=== PATIENT | female | born 1985 | race Caucasian/White ===

== ENCOUNTER 2016-11-22 15:36 | Emergency (ER) | payer OTHER ==
[~2016-11-22] VITALS: Ht 144.8 cm; Wt 52.7 kg
[~2016-11-22 15:36] MED LIST: PROC25SU30 RC; RIZA10TA23 PO
[2016-11-22 15:40] VITALS: BP 108/77; PULSE 95; RESP 20; O2SAT 100
--- NOTE | 2016-11-22 16:09 | ED.REPORT ---
HPI-General Illness Date of Service Nov 22, 2016 ED Provider: Toby Gonzalez MD This is a 31-year-old female with no pertinent past medical history who presents to the emergency department for abdominal pain. She notes both suprapubic pain and epigastric pain. Patient said the suprapubic pain started November 18 associated with heavy bleeding and blood clots. The pain did not radiate. Patient was concerned as her last menstrual period was November 02 with 3-4 days of spotting. Patient does have an implantable Naxplanon device in her arm for the last 2 years. She said the suprapubic pain has decreased, but she now has significant epigastric pain starting today. She does mention this pain radiates to her back with a burning sensation felt in the back. She does note a history of H. pylori that was treated with antibiotics 2 years prior. The pain is worse in a lying position and moving quickly. She has tried ibuprofen, aspirin without relief. She has had nausea with vomiting. Denies hematemesis. Patient denies vaginal discharge, history of gonorrhea or chlamydia. She does note she had a new partner within the last month and mention she had testing for STDs last month which was negative. She did note dizziness starting today as well as weakness. She denies fevers, chills, chest pain, shortness of breath, diarrhea, dysuria or urinary changes. She has had 4 pregnancies with 3 live births and one . Nursing Notes Stated Complaint: STOMACHE PAIN,WEAK,NAUSEA,LIGHT BLEEDING Chief Complaint: Female Abdominal Pain Allergies: Coded Allergies: Penicillins (Verified Allergy, Severe, 11/22/16) codeine (Verified Allergy, Severe, 11/22/16) Scheduled PRN Prochlorperazine Maleate (Compazine Suppository) 25 Mg Supp.rect 25 MG RC Q8 PRN PRN For Nausea/Vomiting Rizatriptan ODT (Maxalt SCREW MACHINE ADJUSTER AUTOMATIC) 10 Mg Tablet 10 MG PO [id number] PRN PRN migraine General Time Seen by MD: 16:08 Chief Complaint Abdominal pain Past Medical History Past Medical History Anxiety Reports: Migraines Past Surgical History Reports: Smoking History Never Smoker Social History Alcohol Use: "Social" Drug Use: THC Other Social History: Good social support, Local resident Ambulatory Status Independent Review of Systems Full Review of Systems Constitutional: Reports: Weakness - generalized, Denies: Chills, Fever Respiratory: Denies: Shortness of breath Cardiovascular: Denies: Chest pain GI: Reports: Abdominal pain, Nausea, Vomiting, Denies: Bloody/tarry stool, Diarrhea Female: Reports: Pelvic pain, Denies: Urinary frequency, Urinary urgency, Urination decreased Musculoskeletal: Reports: Back pain Neurologic: Reports: Dizziness, Lightheaded Complete sys rev & neg: except as marked. Physical Exam Vital Signs Vital Signs Date Time Temp Pulse Resp B/P Pulse Ox O2 Delivery O2 Flow Rate FiO2 11/22/16 22:44 89 20 118/85 97 Room Air 11/22/16 18:17 77 16 136/90 97 Room Air 11/22/16 15:40 95 20 108/77 100 Room Air Initial VS: Reviewed General/Constitutional: Well-developed, Well-nourished Head / Eyes: Atraumatic, Normocephalic ENT: Mucous membranes moist, Conjunctiva normal, No scleral icterus Respiratory: Breath sounds normal, Clear to auscultation, No respiratory distress Cardiovascular: Regular rate & rhythm, Heart sounds normal, Intact distal pulses Abdomen / GI: Soft, No guarding, No rebound, No distention Extremities: Vascular intact, Neuro intact Skin: Warm, Dry Neurologic: Alert, Oriented, Nonfocal Psychiatric: Mood/affect normal, Behavior normal, Normal thought content Abdomen: McBurney's non-tender Tenderness/Guarding/Rebound: Positive: McBurney's point tender, Tender LLQ... ( Mild), Tender LUQ... (Moderate), Tender RLQ... (Severe), Tender epigastric, Tender suprapubic (mild) Organomegaly / Mass / Hernia: Negative: Hepatomegaly, Splenomegaly Female Genitourinary: Tile And Marble Installer present, External genitalia NL, No cervical motion tend, No adnexal tenderness Vaginal Bleeding / Discharge: Positive: Discharge bloody Interpretation & Diagnostics Lab Results Interpretation Result Diagram: 11/22/16 1745 11/22/16 1745 Test 11/22/16 17:45 11/22/16 17:51 11/22/16 19:00 11/22/16 22:17 White Blood Count 4.9th/mm3 (3.8-10.1) Red Blood Count 4.27mil/mm3 (3.90-5.20) Hemoglobin 13.0g/dL (12.0-15.6) Hematocrit 38.1% (35.0-46.0) Mean Corpuscular Volume 89.2fL (81-100) Mean Corpuscular Hemoglobin 30.4pg (27.0-35.0) Mean Corpuscular Hemoglobin Concent 34.1% (32.0-37.0) Red Cell Distribution Width 13.2% (12.3-15.4) Platelet Count 204bil/L (150-400) Neutrophils (%) (Auto) 75.3% (40-74) Lymphocytes (%) (Auto) 17.8% (14-46) Monocytes (%) (Auto) 5.7% (4-12) Eosinophils (%) (Auto) 0.8% (0-5) Basophils (%) (Auto) 0.2% (0-3) Sodium Level 141mEq/L (134-144) Potassium Level 3.4mEq/L (3.5-5.2) Chloride Level 105mEq/L (97-108) Carbon Dioxide Level 21mmol/L (18-29) Blood Urea Nitrogen 10mg/dL (6-20) Creatinine 0.54mg/dL (0.57-1.00) Estimat Glomerular Filtration Rate 191mL/min (>59) Glucose Level 84mg/dL (60-99) Calcium Level 8.3mg/dL (8.5-10.1) Magnesium Level 2.0mg/dL (1.6-2.6) Total Bilirubin 0.2mg/dL (0.0-1.2) Aspartate Amino Transf (AST/SGOT) 21U/L (0-50) Alanine Aminotransferase (ALT/SGPT) 17U/L (0-32) Alkaline Phosphatase 68U/L (25-150) Total Protein 6.7g/dL (6.4-8.4) Albumin 3.9g/dL (3.4-5.0) Lipase 15U/L (13-60) Urine Color Yellow (YELLOW) Urine Appearance Clear (CLEAR,HAZY) Urine pH 6.0 (5.0-8.0) Urine Specific [place] 1.025 (1.003-1.035) Urine Protein Negativemg/dL (NEG,TRACE) Urine Glucose (UA) Negativemg/dL (NEGATIVE) Urine Ketones 40mg/dL (NEGATIVE) Urine Occult Blood Moderate (NEGATIVE) Urine Nitrite Negative (NEGATIVE) Urine Bilirubin Negative (NEGATIVE) Urine Urobilinogen Normalmg/dL (NORMAL) Urine Leukocyte Esterase Negative (NEGATIVE) Urine RBC 0-2/hpf (0-2) Urine WBC 0-5/hpf (0-5) Urine Epithelial Cells Moderate/hpf (NONE-MOD) Urine Crystals None seen (NONE SEEN) Urine Bacteria Few/hpf (NONE-FEW) Urine Hyaline Casts None/lpf (NONE) Urine Granular Casts None seen (NONE SEEN) Urine Waxy Casts None seen (NONE SEEN) Urine Red Blood Cell Casts None seen (NONE SEEN) Urine White Blood Cell Casts None seen (NONE SEEN) Urine Mucus Present (None Seen) Urine Trichomonas None seen (NONE SEEN) Urine Yeast None (NONE SEEN) Urinalysis Comment None Lactic Acid Level 0.5mmol/L (0.4-2.0) CT Abd / Pelvis Interpretation IMPRESSION: 1. Minimal appearance of pyloric thickening, overall nonspecific. This may be related to mild amount of inflammation versus peristalsis. Otherwise, unremarkable exam. Dictated by: Adalgisa Verdin M.D. on 11/22/2016 at 18:54 Approved by: Adalgisa Verdin M.D. on 11/22/2016 at 18:58 ADDENDUM: As noted above, a 29 mm right ovarian cyst is present. Dictated by: Adalgisa Verdin M.D. on 11/22/2016 at 19:01 Study type: Abdominal CT IV contrast Interpretation / Wet Read by: Interpret - Radiologist Re-Eval/Medical Decision Med Decision/Clinical Course In summary, this is a 31-year-old female with no pertinent past medical history who presents to the ED for evaluation of abdominal pain associated with nausea and vomiting over the past 5 days. DDx broad and includes ectopic , ovarian torsion, ruptured ovarian cyst, PID, SBO, appendicitis, cholecystitis/ biliary colic, pancreatitis, nephrolithiasis/renal colic, IBD, intraabdominal mass/abscess, gastroenteritis, diverticulitis, mesenteric ischemia, hernia. Upon arrival to the ED, patient hemodynamically stable, vitals grossly within normal limits. Pt given IVF, zofran, and dilaudid to help control pain and nausea. Initial workup and labs as per above, notable for normal CBC and CMP, and UA with moderate occult blood though patient has been having vaginal bleeding. Lipase is normal. Urine test negative. Did not appreciate any CMT or adnexal fullness on exam. US of the patient's abdomen demonstrates 2.9 cm simple cyst with good flow to the ovaries. CT abd/pelvis demonstrates right ovarian cyst measuring 2.9 cm as well as pyloric thickening. There is no acute finding of the patient's upper abdominal pain based off of CT scan. She does have a history of H. pylori and question would be of peptic ulcer disease. There does not seem to be any urgent process at this time. Recommend outpatient follow-up with PCP with consideration to GI for nonspecific finding of pyloric thickening. As for her suprapubic pain, this could be a result of her 29 mm ovarian cyst. There does not seem to be any evidence of rupture, ectopic , PID, SBO, appendicitis, cholecystitis, pancreatitis based off of imaging and blood work. Recommend follow-up with OB/ CLAIM REP. Given above, seems reasonable to discharge the patient home with close PCP f/u , very careful return precautions, and repeat examination within 24-48 hours. Patient verbalized understanding and agreement with the plan as stated, denied further questions. Time of Eval: 20:00 Patient Status: Condition improved Re-Evaluation/Progress Note: Patient given zofran and dilaudid with improvement in symptoms. Counseled Regarding: Diagnosis, Lab results, Need for follow-up, When/why to return to ED Discharge & Departure Primary Impression: Abdominal pain Abdominal location: epigastric Qualified Code: R10.13 - Epigastric pain Additional Impressions: Right ovarian cyst Pelvic pain Disposition: Home Discharge Condition All VS Reviewed: Yes Condition: Stable Patient Instructions: Epigastric Pain (ED), Ovarian Cyst (DC) Additional Instructions: In the emergency department, you were evaluated for your pain with blood work and imaging (pelvic ultrasound and CT scan). The blood work did not show any signs of infection at this time. On CT scan, there is a 29 mm right ovarian cyst that was seen. For this we recommend follow-up with an DRUM FILLER within the next week. On CT scan there was also some thickening of your pylorus (the end part of the stomach) seen. You should follow up with your primary care physician about this. If you start to develop sudden severe abdominal pain that will not go away, fevers and chills associated with your abdominal pain or vomit blood or see blood in your stool, return to the emergency department. Referrals: Katherine Greene PA-C (PCP) EDSupervising Provider for APC: Toby Gonzalez MD Attending Statement I saw and evaluated the patient in conjunction with the resident. I performed my own physical examination and history. I agree with the plan and findings as documented above. copies to: Katherine Greene PA-C, William B MD Nov 22, 2016 16:09 Román Berger DO Nov 22, 2016 17:15
[2016-11-22] MEDS ORDERED: 0.9% Sodium Chloride 1,000 ML IV ONE (17:38)
[2016-11-22] MEDS ORDERED: Ondansetron 2 mg/mL 2 mL Inj IVPUSH PRN (17:40)
[2016-11-22] MEDS: HYDROmorphone 0.5 mg/0.5 mL iSecure Syringe IVPUSH PRN ×4 (17:57→22:35)
[2016-11-22 17:58] LABS: BASOPHILS % (AUTO) 0.2 % (0-3); EOSINOPHILS % (AUTO) 0.8 % (0-5); MONOCYTES % (AUTO) 5.7 % (4-12); Mean Corpuscular Hemoglobin 30.4 pg (27.0-35.0); Mean Corpuscular Volume 89.2 fL (81-100); NEUTROPHILS % (AUTO) 75.3 % (40-74); Platelet Count 204 bil/L (150-400)
[2016-11-22 18:15] LABS: APPEARANCE,URINE CLEAR (CLEAR,HAZY); COLOR,URINE YELLOW (YELLOW); OCCULT BLOOD,URINE MODERATE (NEGATIVE)
[2016-11-22 18:16] LABS: UROBILINOGEN,URINE NORMAL (NORMAL)
[2016-11-22 18:17] VITALS: BP 136/90; PULSE 77; RESP 16; O2SAT 97
--- NOTE | 2016-11-22 18:59 | DRSVH ---
PROCEDURE: CT ABDOMEN AND PELVIS WITH CONTRAST ([id number]) INDICATIONS: abdominal pain TECHNIQUE: After the administration of intravenous contrast, 5 mm thick sections acquired from the diaphragm to the symphysis. 5 mm coronal and sagittal reformats were acquired. For radiation dose reduction, the following was used: automated exposure control, adjustment of mA and/or kV according to patient siz e. COMPARISON: None. FINDINGS: Image quality: Excellent. ABDOMEN: Lung bases: Lung bases are clear. Heart size is normal. Solid organs: Liver and spleen are normal in size and enhancement. Gallbladder is unremarkable. Bi liary system is non dilated. Pancreas enhances normally. No adrenal nodules. Kidneys demonstrate n ormal size and enhancement, without hydronephrosis. Peritoneum and bowel: Bowel loops demonstrate normal wall thickness and caliber. No free fluid or a ir. Appendix is not clearly identified. No right lower quadrant inflammatory change. There is a mini mal appearance of thickening within the pylorus. Nodes and vessels: No retroperitoneal or mesenteric adenopathy by size criteria. Aorta and inferior vena cava are normal in size. Miscellaneous: No ventral hernias. PELVIS: Genitourinary: Bladder wall thickness is normal. 29 mm right ovarian cyst. Miscellaneous: No inguinal hernias or adenopathy. Bones: No suspicious bony lesions. No vertebral body compression fractures. IMPRESSION: 1. Minimal appearance of pyloric thickening, overall nonspecific. This may be related to mild amount of inflammation versus peristalsis. Otherwise, unremarkable exam. Dictated by: Adalgisa Verdin M.D. on 11/22/2016 at 18:54 Approved by: Adalgisa Verdin M.D. on 11/22/2016 at 18:58
[2016-11-22 22:44] VITALS: BP 118/85; PULSE 89; RESP 20; O2SAT 97
--- NOTE | 2016-11-23 11:52 | DRSVH ---
PROCEDURE: US PELVIC SONOGRAM WITH TRANSVAG AND DOPPLER INDICATIONS: evaluate right ovarian cyst, rule out TOA, torsion TECHNIQUE: Real-time scanning was performed of the pelvic organs, with image documentation. Additional endovagi nal scanning was necessary due to incomplete visualization of the adnexal and endometrial structures by transabdominal scanning. COMPARISON: [facility], CT, CT ABD PELVIS W CON, 11/22/2016, 18:43. FINDINGS: Transabdominal scanning: Limited scanning through the kidneys shows no hydronephrosis. No pathologi c free abdominal or pelvic fluid. Endovaginal scanning: Uterus: Uterus is normal in size at 7.6 x 3.1 x 4.6 cm. The endometrium measures 8 mm in combined t hickness. Ovaries: The right ovary measures 4.1 x 3.1 x 3.0 cm and the left ovary measures 3.4 x 1 point for by 1.8 cm. There is a thin-walled simple cyst in the right ovary measuring up to 2.9 cm. There is pat ent arterial venous flow demonstrated within the ovaries bilaterally. IMPRESSION: 1. Simple cyst demonstrated in the right ovary likely representing a follicular cyst. 2. No evidence of ovarian torsion or tubo-ovarian abscess as clinically queried. Dictated by: Jovan Cali M.D. on 11/23/2016 at 11:48 Approved by: Jovan Cali M.D. on 11/23/2016 at 11:51
== END 2016-11-22 22:45 | disposition home or self-care (01) ==
LOC: SED 15:36
DX: R10.13 Epigastric pain (principal); N83.201 Unspecified ovarian cyst, right side; R10.2 Pelvic and perineal pain; F41.9 Anxiety disorder, unspecified; G43.909 Migraine, unspecified, not intractable, without status migrainosus; Z88.0 Allergy status to penicillin; Z88.5 Allergy status to narcotic agent
CPT/HCPCS: 36415; 74177; 76830; 76856; 80053; 81001; 81002; 81025; 83605; 83690; 83735; 85025; 87210; 87491; 87591; 93975; 96361; 96374; 96375; 96376; 99285; G0463; J1170; J2405; J7030; Q9967

== ENCOUNTER 2016-12-19 02:32 | Emergency (ER) | payer OTHER ==
[~2016-12-19] VITALS: Ht 144.8 cm; Wt 50.9 kg
[2016-12-19 02:36] VITALS: BP 117/74; PULSE 97; RESP 18; O2SAT 100
--- NOTE | 2016-12-19 02:43 | ED.REPORT ---
HPI-Abd Pain F Under 40 Date of Service Dec 19, 2016 ED Provider: Ace Crowe MD The patient is a 31 year old female with a history of anxiety, migraines, and c- section presenting to the ED complaining of right abdominal pain onset last night. She claims that the pain went away yesterday and then came back tonight and made it so she could not sleep. The abdominal pain is exacerbated by walking. Denied symptoms include nausea, vomiting, fever, dysuria, hematuria, constipation, and bloody or black stool. She was seen here 11/22/2016 for similar symptoms. Nursing Notes Stated Complaint: ABDOMINAL PAIN Chief Complaint: Female Abdominal Pain Nursing Notes Reviewed: Yes Allergies: Coded Allergies: Penicillins (Verified Allergy, Severe, 12/19/16) codeine (Verified Allergy, Severe, 12/19/16) Scheduled PRN Prochlorperazine Maleate (Compazine Suppository) 25 Mg Supp.rect 25 MG RC Q8 PRN PRN For Nausea/Vomiting Rizatriptan ODT (Maxalt MANAGER GAMING) 10 Mg Tablet 10 MG PO [id number] PRN PRN migraine General Time Seen by MD: 02:43 Chief Complaint Abdominal pain (right abdominal) Hx Obtained From: Patient Arrived By: Walk-in Sudden in Onset?: Yes Onset Occurred: 1 day ago Symptom Duration: Since onset Location: : RUQ Quality: Painful Exacerbated by: Walking Recent Healthcare: No recent hospitalization, Recent doctor visit Similar Sx Previous: Yes Past Medical History Past Medical History Anxiety Reports: Migraines Past Surgical History Reports: Smoking History Never Smoker Social History Alcohol Use: "Social" Drug Use: THC Other Social History: Good social support, Local resident Ambulatory Status Independent Review of Systems Difficulty sleeping Constitutional: Denies: Fever GI: Reports: Abdominal pain (RUQ), Denies: Bloody/tarry stool, Constipation, Diarrhea, Nausea, Vomiting Female: Denies: Dysuria, Hematuria Complete sys rev & neg: except as marked. Physical Exam Initial Vital Signs Vital Signs (First) Date Time Temp Pulse Resp B/P Pulse Ox O2 Delivery O2 Flow Rate FiO2 12/19/16 02:36 36.6 97 18 117/74 100 Room Air Initial VS: Reviewed, Vital signs normal Head / Eyes: Atraumatic, Normocephalic ENT: Mucous membranes moist Neck: Supple, Non-tender, Full range of motion Lymphatic: No lymphadenopathy Extremities: Vascular intact, Neuro intact, No swelling, No tenderness Skin: Warm, Dry Neurologic: Alert, Oriented Psychiatric: Mood/affect normal, Behavior normal General/Constitutional: Awake, Alert, No acute distress Anicteric Respiratory / Chest: Atraumatic, Breath sounds NL, Breath sounds = bilat, No respiratory distress Cardiovascular: Heart rate NL, Regular rhythm, Heart sounds NL Abdomen: Atraumatic, Soft, BS normoactive Tenderness/Guarding/Rebound: Positive: Tender RUQ... (Moderate) Back: Atraumatic, Inspection NL, Non-tender Interpretation & Diagnostics Lab Results Interpretation Result Diagram: 12/19/16 0318 12/19/16 0318 Test 12/19/16 03:18 White Blood Count 7.1th/mm3 (3.8-10.1) Red Blood Count 4.43mil/mm3 (3.90-5.20) Hemoglobin 13.2g/dL (12.0-15.6) Hematocrit 39.2% (35.0-46.0) Mean Corpuscular Volume 88.5fL (81-100) Mean Corpuscular Hemoglobin 29.8pg (27.0-35.0) Mean Corpuscular Hemoglobin Concent 33.7% (32.0-37.0) Red Cell Distribution Width 13.3% (12.3-15.4) Platelet Count 247bil/L (150-400) Neutrophils (%) (Auto) 61.6% (40-74) Lymphocytes (%) (Auto) 27.5% (14-46) Monocytes (%) (Auto) 7.3% (4-12) Eosinophils (%) (Auto) 3.1% (0-5) Basophils (%) (Auto) 0.4% (0-3) Urine Color Yellow (YELLOW) Urine Appearance Clear (CLEAR,HAZY) Urine pH 6.0 (5.0-8.0) Urine Specific [place] 1.025 (1.003-1.035) Urine Protein Negativemg/dL (NEG,TRACE) Urine Glucose (UA) Negativemg/dL (NEGATIVE) Urine Ketones Tracemg/dL (NEGATIVE) Urine Occult Blood Negative (NEGATIVE) Urine Nitrite Negative (NEGATIVE) Urine Bilirubin Negative (NEGATIVE) Urine Urobilinogen Normalmg/dL (NORMAL) Urine Leukocyte Esterase Negative (NEGATIVE) Urine RBC 0-2/hpf (0-2) Urine WBC 0-5/hpf (0-5) Urine Epithelial Cells Occasional/hpf (NONE-MOD) Urine Crystals None seen (NONE SEEN) Urine Bacteria None/hpf (NONE-FEW) Urine Hyaline Casts Occasional/lpf (NONE) Urine Granular Casts None seen (NONE SEEN) Urine Waxy Casts None seen (NONE SEEN) Urine Red Blood Cell Casts None seen (NONE SEEN) Urine White Blood Cell Casts None seen (NONE SEEN) Urine Mucus None seen (None Seen) Urine Trichomonas None seen (NONE SEEN) Urine Yeast None (NONE SEEN) Urinalysis Comment None Urine Culture Reflexed Not indicated Sodium Level 141mEq/L (134-144) Potassium Level 3.6mEq/L (3.5-5.2) Chloride Level 101mEq/L (97-108) Carbon Dioxide Level 26mmol/L (18-29) Blood Urea Nitrogen 9mg/dL (6-20) Creatinine 0.92mg/dL (0.57-1.00) Estimat Glomerular Filtration Rate 103mL/min (>59) Glucose Level 85mg/dL (60-99) Calcium Level 9.1mg/dL (8.5-10.1) Magnesium Level 2.1mg/dL (1.6-2.6) Total Bilirubin 0.2mg/dL (0.0-1.2) Aspartate Amino Transf (AST/SGOT) 48U/L (0-50) Alanine Aminotransferase (ALT/SGPT) 36U/L (0-32) Alkaline Phosphatase 77U/L (25-150) Total Protein 7.5g/dL (6.4-8.4) Albumin 4.5g/dL (3.4-5.0) Lipase 30U/L (13-60) Re-Eval/Medical Decision Med Decision/Clinical Course Med Decision/Clinical Course: 31-year-old presents with right upper quadrant abdominal pain. She had recently been seen with more left-sided pain and possible gastritis. Endoscopy is currently being scheduled. Her pain today is quite specifically right upper quadrant appears to be biliary colic. Review of her CAT scan shows no calcified stones. No value in repeating her CAT scan this morning. Referred for ultrasound as a fasting scheduled study in the next 2-3 days. Home with a small supply of Vicodin, twice a day proton pump inhibitor. Discharged in stable condition. Re-Evaluation/Progress : Time of Eval: 04:37 Re-Evaluation/Progress Note: Patient rechecked. Discussed lab results and plan to discharge. The patient understands and agrees with the plan. Counseled Regarding: Diagnosis, Lab results, Need for follow-up, When/why to return to ED Discharge & Departure Primary Impression: Biliary colic Disposition: Home Discharge Condition All VS Reviewed: Yes Condition: Improved Patient Instructions: Biliary Colic (ED), Low Fat Diet (ED) Additional Instructions: Eat a very low fat diet. Continue omeprazole twice daily. Call radiology today for Thursday or Thursday appointment for ultrasound. Call your doctor to sign off on the ultrasound to ensure insurance coverage. For the ultrasound, have nothing to the drink or smoke for midnight until the test in the morning. Return if any immediate issues. Sparing use of Vicodin if needed for pain. Referrals: Katherine Greene PA-C (PCP) Scribe Attestation Portions of this note were transcribed by Mahendra Neri. I, Dr. Crowe personally performed the history, physical exam and medical decision-making; I reviewed and confirmed the accuracy of the information in the transcribed note. Signed by: Stefanie Rogers, 12/19/2016 copies to: Katherine Greene PA-C, Christopher W MD Dec 19, 2016 02:43 Dec 19, 2016 03:00
[2016-12-19] MEDS ORDERED: 0.9% Sodium Chloride 1,000 ML IV ONE (02:56)
[2016-12-19] MEDS ORDERED: Ondansetron 2 mg/mL 2 mL Inj IVPUSH ONE (03:00)
[2016-12-19] MEDS ORDERED: Famotidine Inj 20 MG in IV Premix 1 EACH IV ONE (03:00)
[2016-12-19 03:24] LABS: BASOPHILS % (AUTO) 0.4 % (0-3); EOSINOPHILS % (AUTO) 3.1 % (0-5); MONOCYTES % (AUTO) 7.3 % (4-12); Mean Corpuscular Hemoglobin 29.8 pg (27.0-35.0); Mean Corpuscular Volume 88.5 fL (81-100); NEUTROPHILS % (AUTO) 61.6 % (40-74); Platelet Count 247 bil/L (150-400)
[2016-12-19 03:26] LABS: APPEARANCE,URINE CLEAR (CLEAR,HAZY); COLOR,URINE YELLOW (YELLOW); OCCULT BLOOD,URINE NEGATIVE (NEGATIVE); UROBILINOGEN,URINE NORMAL (NORMAL)
[2016-12-19 03:58] LABS: Magnesium 2.1 mg/dL (1.6-2.6)
[2016-12-19] MEDS ORDERED: _HYDROcodone/APAP 5-325 mg Tablet PO PRN (04:40)
[2016-12-19 05:28] VITALS: BP 103/40; PULSE 66; RESP 18; O2SAT 98
== END 2016-12-19 05:30 | disposition home or self-care (01) ==
LOC: SED 02:32
DX: K80.20 Calculus of gallbladder without cholecystitis without obstruction (principal); Z88.0 Allergy status to penicillin; Z88.5 Allergy status to narcotic agent
CPT/HCPCS: 36415; 80053; 81000; 81025; 83690; 83735; 85025; 96361; 96374; 96375; 99285; J1885; J2405; J3490; J7030

== ENCOUNTER → 2016-12-20 | Emergency (ER) | payer OTHER ==
[~2016-12-20] VITALS: Ht 144.8 cm; Wt 50.9 kg
[~2016-12-20] MED LIST changes: +0.9% Sodium Chloride 1,000 ML IV ONE; +Famotidine 10 mg/mL 2 mL Inj IVPUSH ONE; +Ondansetron 2 mg/mL 2 mL Inj IVPUSH PRN; +Sucralfate 100 mg/mL 10 mL Suspension PO ONE; +_HYDROcodone/APAP 5-325 mg Tablet PO PRN
[2016-12-20 20:33] VITALS: BP 105/60; PULSE 94; RESP 22; O2SAT 100
[2016-12-20] MEDS: HYDROmorphone 0.5 mg/0.5 mL iSecure Syringe IVPUSH PRN ×2 (22:08→23:20)
[2016-12-20 22:10] LABS: BASOPHILS % (AUTO) 0.9 % (0-3); EOSINOPHILS % (AUTO) 4.3 % (0-5); Mean Corpuscular Hemoglobin 29.9 pg (27.0-35.0); Mean Corpuscular Volume 90.7 fL (81-100); NEUTROPHILS % (AUTO) 42.8 % (40-74); Platelet Count 209 bil/L (150-400)
--- NOTE | 2016-12-20 22:11 | ED.REPORT ---
HPI-Abd Pain F Under 42 Date of Service Dec 20, 2016 ED Provider: Nga Miles MD Pt is an otherwise healthy 31 year old female who presents to the ED complaining of constant sharp RUQ abdominal pain onset 2 days ago. She c/o associated pain radiating to her back, weakness, nausea, vomiting (1x), and chills. She denies fever, diarrhea, constipation, and any other symptoms. Pt rates her abdominal pain as a 8.5/10, stating that it is a 5/10 after receiving medication. Pt presented to the ED on 12/19/16 with RUQ abdominal and she was discharged with a diagnosis of bilary colic. Nursing Notes Stated Complaint: PAIN RIGHT UPPER STOMACH Chief Complaint: Female Abdominal Pain Nursing Notes Reviewed: Yes Allergies: Coded Allergies: Penicillins (Verified Allergy, Severe, 12/19/16) codeine (Verified Allergy, Severe, 12/19/16) Scheduled PRN Prochlorperazine Maleate (Compazine Suppository) 25 Mg Supp.rect 25 MG RC Q8 PRN PRN For Nausea/Vomiting Rizatriptan ODT (Maxalt DIABETES SPECIALIST) 10 Mg Tablet 10 MG PO [id number] PRN PRN migraine General Time Seen by MD: 21:47 Chief Complaint Abdominal pain Hx Obtained From: Patient Arrived By: Walk-in Sudden in Onset?: No Onset Occurred: 2 days ago Symptom Duration: Since onset Location: : RUQ Quality: Painful Severity: Current: Pain level 5 out of 10 Severity: Maximum: Pain level 8 out of 10 Recent Healthcare: Recent doctor visit Similar Sx Previous: Yes Past Medical History Past Medical History Anxiety Bilac colic Reports: Migraines Past Surgical History Reports: Smoking History Never Smoker Social History Alcohol Use: "Social" Drug Use: THC Other Social History: Good social support, Local resident Ambulatory Status Independent Review of Systems Constitutional: Reports: Chills, Weakness - generalized, Denies: Fever GI: Reports: Abdominal pain, Nausea, Vomiting, Denies: Constipation, Diarrhea Musculoskeletal: Reports: Back pain Complete sys rev & neg: except as marked. Physical Exam Initial Vital Signs Vital Signs (First) Date Time Temp Pulse Resp B/P Pulse Ox O2 Delivery O2 Flow Rate FiO2 12/20/16 20:33 36.7 94 22 105/60 100 Room Air Initial VS: Reviewed Head / Eyes: Atraumatic, Normocephalic Neck: Supple, Full range of motion Extremities: Vascular intact, Neuro intact Skin: Warm, Dry, No cyanosis Neurologic: Alert, Oriented, Nonfocal Psychiatric: Mood/affect normal, Behavior normal General/Constitutional: Awake, Alert Respiratory / Chest: Atraumatic, Breath sounds NL, Breath sounds = bilat Cardiovascular: Heart rate NL, Regular rhythm, Heart sounds NL Abdomen: Atraumatic, Soft Epigastric and RUQ tenderness with guarding. Back: Atraumatic, Full range of motion Interpretation & Diagnostics Lab Results Interpretation Result Diagram: 12/20/16220612/20/162206 Test 12/20/16 22:07 White Blood Count 4.6th/mm3 (3.8-10.1) Red Blood Count 3.98mil/mm3 (3.90-5.20) Hemoglobin 11.9g/dL (12.0-15.6) Hematocrit 36.1% (35.0-46.0) Mean Corpuscular Volume 90.7fL (81-100) Mean Corpuscular Hemoglobin 29.9pg (27.0-35.0) Mean Corpuscular Hemoglobin Concent 33.0% (32.0-37.0) Red Cell Distribution Width 12.9% (12.3-15.4) Platelet Count 209bil/L (150-400) Neutrophils (%) (Auto) 42.8% (40-74) Lymphocytes (%) (Auto) 43.8% (14-46) Monocytes (%) (Auto) 8.0% (4-12) Eosinophils (%) (Auto) 4.3% (0-5) Basophils (%) (Auto) 0.9% (0-3) Sodium Level 141mEq/L (134-144) Potassium Level 3.6mEq/L (3.5-5.2) Chloride Level 103mEq/L (97-108) Carbon Dioxide Level 26mmol/L (18-29) Blood Urea Nitrogen 11mg/dL (6-20) Creatinine 0.63mg/dL (0.57-1.00) Estimat Glomerular Filtration Rate 160mL/min (>59) Glucose Level 101mg/dL (60-99) Calcium Level 8.5mg/dL (8.5-10.1) Magnesium Level 2.3mg/dL (1.6-2.6) Total Bilirubin 0.2mg/dL (0.0-1.2) Aspartate Amino Transf (AST/SGOT) 32U/L (0-50) Alanine Aminotransferase (ALT/SGPT) 28U/L (0-32) Alkaline Phosphatase 65U/L (25-150) Total Protein 6.8g/dL (6.4-8.4) Albumin 4.1g/dL (3.4-5.0) Lipase 27U/L (13-60) Hold [place] Top Tube Received (Received) Re-Eval/Medical Decision Med Decision/Clinical Course The patient has significant epigastric or right upper quadrant pain but no signs of cholecystitis. Her symptoms could be related to the biliary sludge that she has or it could be related to her ongoing abdominal symptoms. The patient will be educated on eating nonfatty diet and was told she is to follow up for HIDA scan. Partial list of differential diagnoses considered were peptic ulcer disease, gastroenteritis, pancreatitis, cholecystitis, and bowel obstruction. An ultrasound was done and does not show any signs of cholecystitis although she does have sludge and ate 2 hours ago with a full gallbladder so this is likely the cause of her symptoms but she does not have acute cholecystitis and can be taken care of as an outpatient. Source of Hx: Old records Re-Evaluation/Progress #1: Time of Eval: 22:21 Re-Evaluation/Progress Note: Informed pt of plan for treatment, US, and potential causes for her pain. Pt understands and agrees with plan. All questions addressed. Re-Evaluation/Progress #2: Time of Eval: 23:38 Re-Evaluation/Progress Note: Pt rechecked. Informed pt of US results and plan for discharge. Pt understands and agrees with plan for discharge. F/U instructions and RTER warnings given. All questions addressed. Counseled Regarding: Diagnosis, Lab results, Need for follow-up, When/why to return to ED Discharge & Departure Primary Impression: Abdominal pain Abdominal location: unspecified location Qualified Code: R10.9 - Unspecified abdominal pain Discharge Condition All VS Reviewed: Yes Condition: Stable Patient Instructions: Acute Abdominal Pain (ED) Additional Instructions: Thank you for entrusting us with your care today. Your labs and US are reassuring. It is unclear what is causing your symptoms today, but they could be related to peptic ulcer disease. There were no signs of gallbladder obstruction. There is still a remote possibility that it could be your gallbladder. Drink plenty of fluids. Stay away from fatty foods. Call your primary care provider on Thursday for follow up appointment next week. Have a HIDA scan ordered for further evaluation. Return to the emergency department for any new or concerning symptoms such as worsening pain. Referrals: Katherine Greene PA-C (PCP) Scribe Attestation Portions of this note were transcribed by Ivelisse Sales. I, Dr. Miles personally performed the history, physical exam and medical decision-making; I reviewed and confirmed the accuracy of the information in the transcribed note. Signed by : Stefanie Cardoso, 12/20/16. copies to: Katherine Greene PA-C, Jena M MD Dec 20, 2016 22:11 Ivelisse Rodas Dec 20, 2016 22:14
[2016-12-20 22:37] LABS: Magnesium 2.3 mg/dL (1.6-2.6)
[2016-12-20 23:59] VITALS: BP 97/65; PULSE 70; RESP 16; O2SAT 99
[2016-12-21] VITALS: BP 97/65; PULSE 70; RESP 16; O2SAT 99
--- NOTE | 2016-12-21 10:13 | DRSVH ---
PROCEDURE: US ABDOMEN ([id number]) INDICATIONS: 31 year-old female with right upper quadrant abdominal pain. TECHNIQUE: Real-time scanning was performed of the abdominal and retroperitoneal organs, with image documentatio n. COMPARISON: [facility], CT, CT ABD PELVIS W CON, 11/22/2016, 18:43. FINDINGS: Preliminary interpretation rendered by [facility]. Liver: Liver is normal in size and homogeneous in echotexture. Gallbladder: No gallstones; there is moderate dependent echogenic gallbladder sludge. Gallbladder wa ll thickness is normal. No pericholecystic fluid. Biliary ducts: Intrahepatic bile ducts are non-dilated. Extrahepatic bile duct caliber measures 5.7 mm. Normal is 6-7 mm or less in diameter, or 10 mm or less post-cholecystectomy. Pancreas: Visualized portions of the pancreas are sonographically normal. Spleen: Spleen is normal in size and homogeneous in echotexture. Kidneys: Kidneys are normal in size and echotexture. Right kidney measures 9.9 cm long; left kidney measures 9.4 cm long. No hydronephrosis or nephrolithiasis. No solid masses. Aorta: Visualized aorta is normal in caliber at less than 3 cm. Iliacs: Proximal common iliac arteries are normal in caliber at less than 2.5 cm. IVC: Intrahepatic inferior vena cava is patent. Miscellaneous: No free abdominal fluid. IMPRESSION: Moderate dependent gallbladder sludge, without gallbladder wall thickening to suggest laila lculous cholecystitis. Dictated by: Suraj Juan M.D. on 12/21/2016 at 8:21 Approved by: Suraj Juan M.D. on 12/21/2016 at 8:24
== END | disposition home or self-care (01) ==
LOC: SED 20:29
DX: R10.11 Right upper quadrant pain (principal); R10.13 Epigastric pain; R11.2 Nausea with vomiting, unspecified; R53.1 Weakness; F41.9 Anxiety disorder, unspecified; G43.909 Migraine, unspecified, not intractable, without status migrainosus; Z88.0 Allergy status to penicillin; Z88.5 Allergy status to narcotic agent
CPT/HCPCS: 36415; 76700; 80053; 83690; 83735; 85025; 96361; 96374; 96375; 96376; 99285; J1170; J2405; J7030